=== PATIENT | male | born 1980 | race Caucasian/White ===

== ENCOUNTER 2022-02-22 20:31 | Emergency (ER) | payer MEDICAID ==
[~2022-02-22] VITALS: Ht 170.2 cm; Wt 84.0 kg
[2022-02-22 21:03] VITALS: BP 121/61
== END 2022-02-22 21:12 | disposition home or self-care (01) ==
LOC: ER 20:32
DX: S01.81XD Laceration without foreign body of other part of head, subsequent encounter (principal); W22.8XXD Striking against or struck by other objects, subsequent encounter
CPT/HCPCS: 99281